=== PATIENT | female | born 1960 | race Caucasian/White ===

== ENCOUNTER → 2025-02-02 07:18 | Outpatient (REF) | payer OTHER, SELFPAY | LOC: HWWDC 07:18 | PROVIDERS: ATTENDING PHYSICIAN Obstetrics & Gynecology Gynecology; FAMILY PHYSICIAN Nurse Practitioner Family | DX: Z12.31 Encounter for screening mammogram for malignant neoplasm of breast (principal) | CPT/HCPCS: 77063; 77067 ==

== ENCOUNTER → 2025-02-09 07:45 | Outpatient (REF) | payer OTHER, SELFPAY | LOC: HWRAD 07:45 | PROVIDERS: ATTENDING PHYSICIAN Obstetrics & Gynecology Gynecology; FAMILY PHYSICIAN Nurse Practitioner Family | DX: Z78.0 Asymptomatic menopausal state (principal) | CPT/HCPCS: 77080 ==

== ENCOUNTER 2025-08-07 07:19 | Day surgery (SDC) | payer OTHER, SELFPAY | END 2025-08-07 09:40 | disposition home or self-care (01) | LOC: GI 07:19 | PROVIDERS: ATTENDING PHYSICIAN Internal Medicine Gastroenterology; FAMILY PHYSICIAN Internal Medicine | DX: K90.0 Celiac disease (principal); K44.9 Diaphragmatic hernia without obstruction or gangrene; K31.7 Polyp of stomach and duodenum; K31.89 Other diseases of stomach and duodenum; K22.89 Other specified disease of esophagus; Q39.9 Congenital malformation of esophagus, unspecified | CPT/HCPCS: 43239; 88305 ==